=== PATIENT | male | born 1945 | race Caucasian/White ===

== ENCOUNTER 2019-03-24 16:18 | Emergency (ER) | payer OTHER, MEDICARE ==
[2019-03-24 16:26] VITALS: BP 154/62
[2019-03-24] MEDS ORDERED: BACITRACIN ZINC OINT 14 GM TOP STA (17:28)
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
[2019-03-24] MEDS ORDERED: TETANUS/DIPHTHERIA/PERTUSSIS 0.5 ML SYRINGE IM ONE (17:52)
== END 2019-03-24 17:57 | disposition home or self-care (01) ==
LOC: ED 16:18
DX: S40.212A Abrasion of left shoulder, initial encounter (principal); V42.5XXA Car driver injured in collision with two- or three-wheeled motor vehicle in traffic accident, initial encounter; Z23 Encounter for immunization; R03.0 Elevated blood-pressure reading, without diagnosis of hypertension
CPT/HCPCS: 90471; 90715; 99282; 99283; A9270

== ENCOUNTER 2020-02-02 14:33 | Outpatient (CLI) | payer MEDICARE, OTHER ==
--- NOTE | 2020-02-02 17:33 | XRAY Report ---
PROCEDURE: Foot 3 View LT INDICATIONS: PAIN AT ELADIO +BLANKA +1ST MT HEAD AT 3RD DIGIT LT TECHNIQUE: 3 views of the foot were acquired. COMPARISON: None FINDINGS: Bones: No fractures or dislocations. No suspicious bony lesions. Soft tissues: No tibiotalar joint effusion. Achilles tendon appears normal. IMPRESSION: No acute radiographic findings. If pain persists, cross-sectional imaging with CT or MRI could be use d to further characterize findings. Reviewed by: Cee Pleitez MD on 02/02/2020 5:32 PM PDT Approved by: Cee Pleitez MD on 02/02/2020 5:32 PM PDT Station ID: [id number]
== END 2020-02-02 14:34 | disposition home or self-care (01) ==
LOC: DI 14:33
PROVIDERS: ATTEND Podiatrist
DX: M79.672 Pain in left foot (principal)

== ENCOUNTER 2020-02-09 08:16 | Outpatient (CLI) | payer MEDICARE, OTHER ==
--- NOTE | 2020-02-09 18:00 | MRI Report ---
PROCEDURE: Ankle LT W/O INDICATIONS: LT ACHILLES TENDON PAIN AND EDEMA TECHNIQUE: Noncontrast coronal and sagittal T1 spin echo and STIR; axial T1 spin echo and T2 fast spin echo with fat saturation through the left ankle. COMPARISON: None. FINDINGS: Image quality: Excellent. Bones: The visualized bone marrow demonstrates normal signal on all sequences. The overlying cortex appears intact. No fractures lines or intra-osseous lesions. Soft tissues: Circumferential subcutaneous edema is seen throughout the hindfoot midfoot and forefoot . Mild posterior tibialis tenosynovitis. There is also anterior tibialis tenosynovitis. Severe thickening of the Achilles tendon, with intrasubstance signal changes in keeping with partial rupture/tendinopathy. This appears centered approximately 6.0 cm cephalad to the calcaneal insertion. Mild medial band plantar fasciitis. IMPRESSION: Distal Achilles tendinopathy/partial rupture, centered approximately 6 cm cephalad to th e calcaneal insertion. No complete rupture identified Circumferential, diffuse subcutaneous cellulitis Mild posterior tibialis tenosynovitis Anterior tibialis tenosynovitis Reviewed by: Alexandre Jha MD on 02/09/2020 5:59 PM PDT Approved by: Alexandre Jha MD on 02/09/2020 5:59 PM PDT Station ID: [id number]
== END 2020-02-09 08:17 | disposition home or self-care (01) ==
LOC: DI 08:16
PROVIDERS: ATTEND Podiatrist
DX: S86.012A Strain of left Achilles tendon, initial encounter (principal); L03.116 Cellulitis of left lower limb; M65.9 Synovitis and tenosynovitis, unspecified

== ENCOUNTER 2020-02-24 13:28 | Outpatient (CLI) | payer MEDICARE, OTHER | END 2020-02-24 13:29 | disposition home or self-care (01) | LOC: COV 13:28 | PROVIDERS: ATTEND Family Medicine | DX: J02.9 Acute pharyngitis, unspecified (principal); J34.89 Other specified disorders of nose and nasal sinuses; Z20.828 Contact with and (suspected) exposure to other viral communicable diseases ==

== ENCOUNTER 2020-04-27 11:27 | Outpatient (CLI) | payer MEDICARE, OTHER | END 2020-04-27 11:28 | disposition home or self-care (01) | LOC: COV 11:27 | PROVIDERS: ATTEND Family Medicine | DX: R05 Cough (principal); M79.10 Myalgia, unspecified site; R53.83 Other fatigue; R68.83 Chills (without fever); R09.81 Nasal congestion; Z20.828 Contact with and (suspected) exposure to other viral communicable diseases ==

== ENCOUNTER 2020-06-21 06:59 | Outpatient (CLI) | payer MEDICARE, OTHER ==
--- NOTE | 2020-06-21 14:57 | Ultrasound Report ---
PROCEDURE: Aorta Screening INDICATIONS: H/O TOBACCO USE, AAA SCREEN TECHNIQUE: Real time scanning was performed of the aorta and iliac arteries, with image documentatio n. COMPARISON: None FINDINGS: Aorta: Proximal aortic diameter measures 2.5 x 2.3 cm. Mid-aorta measures 2.0 x 2.1 cm. Distal aor tic diameter is 1.9 x 1.9 cm. Iliac arteries: Right common iliac artery measures 1.1 x 1.0 cm. Left common iliac artery measures 1.1 x 1.2 cm. IMPRESSION: No visualized aneurysmal dilation. Reviewed by: Shaneka Harding MD on 06/21/2020 2:56 PM PST Approved by: Shaneka Harding MD on 06/21/2020 2:56 PM PST Station ID: [id number]
== END 2020-06-21 07:00 | disposition home or self-care (01) ==
LOC: DI 06:59
PROVIDERS: ATTEND Family Medicine
DX: Z13.6 Encounter for screening for cardiovascular disorders (principal); Z87.891 Personal history of nicotine dependence

== ENCOUNTER 2023-11-12 07:02 | Outpatient (CLI) | payer MEDICARE ==
[2023-11-12 15:45] LABS: CHOL/HDL RATIO 2.5 (<5.0); CHOLESTEROL 246 mg/dL; HDL CHOLESTEROL 99 mg/dL; LDL CHOLESTEROL,CALCULATED 123 mg/dL; LDL/HDL RATIO 1.2 (<3.6); TRIGLYCERIDES 121 mg/dL (48-352); VLDL CHOLESTEROL 24 mg/dL
== END 2023-11-12 07:03 | disposition home or self-care (01) ==
LOC: LAB.S 07:02
PROVIDERS: ATTEND Family Medicine
DX: E78.2 Mixed hyperlipidemia (principal)
CPT/HCPCS: 36415; 80061; 83721